=== PATIENT | male | born 1960 | race Caucasian/White ===

== ENCOUNTER 2020-12-17 10:48 | Observation (INO) | payer OTHER ==
[~2020-12-17] VITALS: Ht 172.7 cm; Wt 98.2 kg
[2020-12-17 11:16] LABS: BASO % 0.4 % (0.0-2.0); EOS # 0.2 (0.0-0.7); EOS % 4.2 % (0-4.0); GRAN # 2.6 (1.4-6.5); HEMATOCRIT 42.2 % (42.0-52.0); LYMPH # 1.2 (1.2-3.4); LYMPH % 27.2 % (20.0-51.0); MEAN CELL VOLUME 87 fl (80.0-100.0); MEAN CORPUSCULAR HEMOGLOBIN 29 pg (27.0-31.0); MEAN CORPUSCULAR HGB CONC 33 g/dl (33.0-37.0); MEAN PLATELET VOLUME 10.1 fl (7.4-10.4); MONO # 0.5 (0.1-0.6); MONO % 11.2 % (1.7-9.3); PLATELET COUNT 163 K/mm3 (130-400); RED BLOOD COUNT 4.88 M/mm3 (4.20-5.60); REDCELL DISTRIBUTION WIDTH-CV 13.6 % (11.5-14.5)
[2020-12-17 11:33] LABS: ALBUMIN 3.8 gm/dL (3.5-5.0); BILIRUBIN,TOTAL 0.6 mg/dL (0.0-1.0); CALCIUM 8.7 mg/dL (8.4-10.2); CREATININE, serum 0.88 (0.66-1.25); TOTAL PROTEIN 6.2 gm/dL (6.4-8.2)
[2020-12-17 12:10] LABS: TSH w REFLEX 1.527 uIU/mL (0.350-4.940)
[2020-12-17 14:51] LABS: COLLECTION METHOD CLEAN CATCH
[2020-12-17 14:56] LABS: MUCOUS Present /lpf; PH 7 (5-8); SQUAMOUS EPITHELIAL None Seen /hpf; URINE APPEARANCE Clear; URINE BACTERIA None Seen /hpf; URINE BILIRUBIN Negative (NEGATIVE); URINE BLOOD Negative (NEGATIVE); URINE COLOR Yellow; URINE GLUCOSE Negative (NEGATIVE); URINE KETONE Negative (NEGATIVE); URINE LEUKOCYTE ESTERASE Negative (NEGATIVE); URINE NITRATE Negative (NEGATIVE); URINE PROTEIN(semi-quant) Negative (NEGATIVE); URINE RBC 0-2 /hpf; URINE UROBILINOGEN Negative (NEGATIVE)
--- NOTE | 2020-12-17 19:28 | NUR ---
RECEIVED CHANGE OF SHIFT REPORT FROM DAY SHIFT NURSE.
[2020-12-17 20:05] VITALS: BP 156/91; PULSE 61; TEMP 98
[2020-12-17] MEDS ORDERED: NORVASC 5MG5 MG/TAB PO (22:41)
[2020-12-17] MEDS ORDERED: LIPITOR20 MG PO (22:42)
[2020-12-17] MEDS ORDERED: TYLENOL 500MG500 MG PO (22:44)
[2020-12-17] MEDS ORDERED: HCTZ 25MG TAB25 MG PO (22:44)
[2020-12-17] MEDS ORDERED: PEPTO BISM262 MG/15 PO (22:46)
[2020-12-17] MEDS ORDERED: ALKA-SELTZER HE1 TEF PO (22:47)
[2020-12-17 23:10] VITALS: BP 171/93; PULSE 52; TEMP 97.9
--- NOTE | 2020-12-17 23:30 | NUR ---
PATIENT REPORTING HEADACHE THAT HAS NOT RESOLVED AFTER MEDICATED WITH LOPRESSOR. SEE [facility] FOR VITALS, OBSERVED BP ELEVATED. WAITING LAMP SHADE JOINER BACK FROM HOSPITALIST PROVIDER REGARDING PATIENT HEADACHE COMPLAINTS AND ELEVATED BP. PATIENT DENIES DIZZINESS/VISUAL CHANGES/SOA/NUMBNESS OR TINGLING TO EXTREMITIES. DENIES NAUSEA, NO FACIAL DROOPING OR WEAKNESS TO EITHER SIDE OF BODY/EXTREMITIES.
[2020-12-18 01:18] VITALS: BP 159/88
--- NOTE | 2020-12-18 02:00 | NUR ---
SEE MAR FOR MEDS GIVEN FOR HEADACHE COMPLAINT. HYDRAZALINE NOT GIVEN DUE TO BP RECHECK, DID NOT MEET PARAMETERS FOR DOSING.
[2020-12-18 04:14] VITALS: BP 145/89; PULSE 52; TEMP 97.4
--- NOTE | 2020-12-18 07:15 | NUR ---
CHANGE OF SHIFT REPORT GIVEN TO DAY SHIFT NURSE, YOMAIRA MOE.
[2020-12-18 07:31] LABS: BASO % 0.4 % (0.0-2.0); EOS # 0.3 (0.0-0.7); EOS % 6.4 % (0-4.0); GRAN # 2.4 (1.4-6.5); GRAN % 50.2 % (42.2-75.2); HEMATOCRIT 41.2 % (42.0-52.0); HEMOGLOBIN 13.4 g/dl (13.5-18.0); LYMPH # 1.5 (1.2-3.4); LYMPH % 32.6 % (20.0-51.0); MEAN CELL VOLUME 88 fl (80.0-100.0); MEAN CORPUSCULAR HEMOGLOBIN 29 pg (27.0-31.0); MEAN CORPUSCULAR HGB CONC 33 g/dl (33.0-37.0); MONO # 0.5 (0.1-0.6); MONO % 10.2 % (1.7-9.3); PLATELET COUNT 159 K/mm3 (130-400); REDCELL DISTRIBUTION WIDTH-CV 13.5 % (11.5-14.5)
[2020-12-18 07:40] LABS: CALCIUM 8.7 mg/dL (8.4-10.2); CREATININE, serum 0.9 (0.66-1.25); POTASSIUM 4.2 mmol/L (3.4-5.0)
[2020-12-18 07:44] VITALS: BP 155/94; PULSE 52; TEMP 98
--- NOTE | 2020-12-18 08:00 | NUR ---
PATIENT IS A&O. VSS. DENIES ANY COMPLAINTS AND STATES HE IS HOPING TO DISCHARGE HOME TODAY. AM MEDS GIVEN. PATIENT WAS HOLDING OFF ON EATTING ANY BREAKFAST DUE TO SCHEDULED MRI. NURSING NOTED MRI COMPLETED YESTERDAY ORDERED BY A DIFFERENT PROVIDER. CONTACTED PROVIDER TO CLARIFY REPEAT ORDER, AWAITING RETURN CALL. HEAD TO TOE ASSESSMENT WNL. NO OTHER NEEDS AT THIS TIME. PATIENT INDEPENDENT IN ROOM. CALL LIGHT IN REACH.
--- NOTE | 2020-12-18 08:25 | NUR ---
LEFT MESSAGE FOR ABOUT ANOTHER MRI ORDER. WAITING FOR RETURN CALL.
[2020-12-18] MEDS ORDERED: CLEOCIN HCL300 MG PO (08:40)
[2020-12-18] MEDS ORDERED: PLAVIX 75MG TAB75 MG PO (08:40)
[2020-12-18] MEDS ORDERED: NORVASC 5MG5 MG/TAB PO (08:41)
[2020-12-18] MEDS ORDERED: LIPITOR 40MG TA40 MG PO (08:41)
[2020-12-18] MEDS ORDERED: PEPCID 20MG TAB20 MG PO (08:42)
[2020-12-18] MEDS ORDERED: ASPIRIN E.C. 8181 MG PO (08:42)
[2020-12-18] MEDS ORDERED: HCTZ 25MG TAB25 MG PO (08:42)
[2020-12-18 11:34] VITALS: BP 153/88; PULSE 54; TEMP 98.1
--- NOTE | 2020-12-18 15:03 | NUR ---
Wood Inspector met with patient to discuss discharge planning. Patient lives in [place] with his , No ([phone]) and recently moved from [place], [place]. Patient states he was seeing Dr. Chao at the [facility] and has not been able to establish primary care yet here in [place]. Patient does not use any DME and is independent with [facility]. Patient does not have Advance Directives at this time. Patient plans to return home at discharge, which will be today. YUE contacted the [facility] and was advised that patient would need to contact [facility] at [phone] Ext [phone] to get set up for primary care through the [facility]. YUE contacted Elisha at [facility] who advised SW that patient needs to complete a new Health Benefits Assessment. Elisha faxed forms to YUE who then provided forms to patient. After patient completed the forms, YUE returned them to Elisha at fax #[phone]. YUE collaborated the above information about primary care to GREGOR Moses.
--- NOTE | 2020-12-18 15:07 | NUR ---
PATIENT'S RIDE HERE. GAVE DISCHARGE INSTRUCTIONS, E-SCRIPTS SENT & F/U APTS DISCUSSED. DC'D LEFT FORARM IV, COVERED WITH G[employer]ZE [employer]AN. DC'D TELE. PATIENT DRESSED, PACKED AND ESCORTED OUT.
== END 2020-12-18 15:30 | disposition home or self-care (01) ==
LOC: COL.ER 10:48 → SURG 12:45
PROVIDERS: Emergency Medicine; ADMIT Student in an Organized Health Care Education/Training Program
DX: G45.9 Transient cerebral ischemic attack, unspecified (principal); I66.9 Occlusion and stenosis of unspecified cerebral artery; I10 Essential (primary) hypertension; K02.9 Dental caries, unspecified; H54.61 Unqualified visual loss, right eye, normal vision left eye; T50.916A Underdosing of multiple unspecified drugs, medicaments and biological substances, initial encounter; T39.016A Underdosing of aspirin, initial encounter; R00.1 Bradycardia, unspecified; I25.2 Old myocardial infarction; Z20.822 Contact with and (suspected) exposure to COVID-19; Z91.128 Patient's intentional underdosing of medication regimen for other reason; Z87.891 Personal history of nicotine dependence
CPT/HCPCS: 99239; G0378; J0360; J1650; Q9967